=== PATIENT | male | born 1975 | race Two or more races ===

== ENCOUNTER 2022-10-28 15:02 | Outpatient (CLI) | payer OTHER ==
--- NOTE | 2022-10-28 15:43 | Sleep Patient Instructions ---
Sleep Center Visit Summary - Patient Visit Information Reason for Visit: Initial consult for evaluation of sleep disordered breathing and other sleep issues. - Patient Instructions Instructions Attached: Sleep Study Home Monitor, Sleep Study, Sleep Clinic Visit Additional Instructions: You will be completing a sleep study, either an in-lab polysomnography (PSG) or home sleep study (HST). You will follow-up in the sleep care office after the sleep study is completed to hear the results and talk about therapy, if needed. You will be called by our office staff to schedule this appointment, but you may contact us with any questions. - Clinic Information Contact: [facility] [address] [place] [address] [email or web address] T: [phone]
--- NOTE | 2022-10-28 15:55 | SLEEP CARE CONSULTATION ---
Information from patient questionnaire entered by Leah Berry. I have reviewed and concur with the information entered by Leah Berry. This document represents the service I personally performed and the decisions made by me, Loren Pearl ARNP. History of Present Illness Service Date and Time: 10/28/2022 1502 Reason for Visit: New patient Chief Complaint: reports: Insomnia, Unrefreshed sleep, Snoring, Excessive daytime sleepiness, Fatigue Date of Onset: 4YRS Usual bedtime: 12-1AM Time it takes to fall asleep: 0 MIN Snores at night: Yes Observed to quit breathing while asleep: No Sleeps alone due to snoring: Yes Number of times waking at night: 0 Reasons for waking at night: denies: Choking, Snoring, Gasping for air Toss, Turn, or Twitch while sleeping: No Recalls having dreams: No Usually gets out of bed at: 630AM; weekends tries to sleep longer but normally does not happen Feels refreshed in the morning: No Morning headache: No Sleepy or fatigued during the day: Yes (unintentional naps daily if "boring") Ever fallen asleep while driving: No (drowsy driving on long trips) Takes day naps: Yes (tries not to take them ) Dreams during day naps: No Prior sleep studies: No Additional HPI information: I had the pleasure of seeing HEVER GRANADOS today regarding the possibility of him having a sleep disorder. His current complaints are excessive daytime sleepiness, fatigue, insomnia, snoring and unrefreshed sleep. He comes in because is complaining of loud snoring. She will try to go to sleep before him to be able to fall asleep or sleep separately. He is generally tired through the day. If he does not stay busy he can fall asleep unintentionally. He will fall asleep while watching TV. He tries not to do this because he wants to go to bed on time. He states once he gets to sleep he does not usually wake up. He averages about 6 hours of sleep on a good night. He denies waking up with headaches. - Parasomnia Symptoms Ever been unable to move upon waking from sleep: No Walks in sleep: No Talks in sleep: No Ever acted out dreams in sleep: No Ever felt weak in the knees when startled or emotional: No Bothered by creepy, crawly, restless sensations in legs: Yes (sometimes; usually when trying to go to sleep) Problems with memory or concentration: Yes (both) Subjective Initial [place] Sleepiness Scale score: 15 (10/28/22) Past Medical History Past Medical History: reports: Other (no significant medical history) Social History The patient's occupation is a AM. Patient is and lives in [place]. Have you smoked in the past 12 months: Yes Cigarettes per day (20/pack): 10 Years of smokin Quit date: Smoking Pack Years: 15.0 Alcohol use: Yes Alcohol amount and frequency: 2-3 DRNKS 3-4DAYS A WEEK Caffeine use: Yes Caffeine amount and frequency: 12-16OZ 3-4 A DAY Family History Family history of sleep disordered breathing: No (don't know) Allergies and Home Medications Known drug allergies: No Drug allergies reviewed: Yes Home medication list reviewed: Yes (no daily medications) Review of Systems Weight gain over past 5 years: 0 Weight loss over past 5 years: 0 Cardiovascular: denies: high blood pressure Gastrointestinal: denies: heartburn Neurological: denies: headaches Psychiatric: denies: anxiety, depression Ear/Nose/Throat: reports: nasal congestion, wisdom teeth removed. denies: tonsillectomy Endocrine: reports: sluggishness, unexplained weakness Musculoskeletal: reports: joint pain, back pain, mobility problems Immunologic: reports: sneezing, allergies to food or environment (seasonal allergies) Physical Exam Vital signs obtained and entered by: LEAH Jasso MA Blood Pressure: 136/82 (LEFT ARM) Cuff size: regular Heart Rate: 68 O2 Saturation: 98 Height: 5 ft 9 in Weight: 175 lb 9.6 oz Body Mass Index: 25.9 BMI Classification: Overweight Neck circumference: 16.25 Mouth and throat: narrow oropharynx Soft palate: long Hard palate: normal Uvula: normal Uvula visualization: 0% Mallampati Class IV Tongue: enlarged in size with teeth frankel on lateral edges Tonsils: small Neck: normal w/o lymphadenopathy or thyromegaly Heart: regular rate and rhythm Lungs: clear bilaterally Impression and Plan 1. Suspected Obstructive Sleep Apnea-Hypopnea Syndrome, as suggested by a history of loud and irregular snoring, observed cessation of breath while asle ep, unrefreshed sleep, cognitive impairment, and excessive daytime sleepiness. Narrow oropharynx and obesity are common predisposing factors for obstructive sleep apnea-hypopnea syndrome. I recommend proceeding to polysomnography to confirm the diagnosis and to assess severity. If the patient has significant sleep disordered breathing, a manual CPAP titration study will also be performed to find the optimal treatment pressure. I informed the patient of what the sleep studies involve and after some discussion, obtained agreement to proceed. The pathophysiology of obstructive sleep apnea-hypopnea syndrome was discussed with the patient and health risks of cardiovascular and cerebrovascular disease if not treated. Risks of drowsy driving discussed in detail and patient advised to avoid long distance driving and to rod puller at the first sign of drowsiness. Patient agreed to plan. * Schedule polysomnography. * Avoid long distance driving or driving when feeling sleepy. * Avoid alcohol, sedative and muscle relaxant around bedtime. * Attempt to lose weight. * Review instructions provided by trained office staff on how to prepare for the sleep study. * Return for follow-up after sleep study completed. Counseling Topics: Weight loss health impact Visit Type: In Office Time Spent with Patient (minutes): 30 Provider Statement: I spent 100% of the Face to Face Visit with the patient with greater than 50% spent counseling the patient and coordination of care.
[2022-10-28 16:00] VITALS: BP 136/82; O2SAT 98
== END 2022-10-28 15:03 | disposition home or self-care (01) ==
LOC: SC 15:02
PROVIDERS: ATTEND Nurse Practitioner Family
DX: R06.83 Snoring (principal); R06.81 Apnea, not elsewhere classified; G47.8 Other sleep disorders; R41.89 Other symptoms and signs involving cognitive functions and awareness; G47.10 Hypersomnia, unspecified; F17.210 Nicotine dependence, cigarettes, uncomplicated; E66.3 Overweight; Z68.25 Body mass index [BMI] 25.0-25.9, adult
CPT/HCPCS: 99203; 99212

== ENCOUNTER 2022-12-01 19:34 | Outpatient (CLI) | payer OTHER | END 2022-12-01 19:35 | disposition home or self-care (01) | LOC: SC 19:34 | PROVIDERS: ATTEND Nurse Practitioner Family | DX: R06.83 Snoring (principal); G47.8 Other sleep disorders; R06.81 Apnea, not elsewhere classified; E66.3 Overweight; G47.10 Hypersomnia, unspecified; R53.83 Other fatigue; Z68.25 Body mass index [BMI] 25.0-25.9, adult | CPT/HCPCS: 95810 ==

== ENCOUNTER 2022-12-25 11:02 | Outpatient (CLI) | payer OTHER ==
--- NOTE | 2022-12-25 11:53 | Sleep Patient Instructions ---
Sleep Center Visit Summary - Patient Visit Information Reason for Visit: Sleep study followup - Patient Instructions Instructions Attached: Snoring Tips Prevent Additional Instructions: Your sleep study today was negative for significant sleep disordered breathing. You were found to have episodes of snoring. There are different ways to control snoring including weight loss, oral devices made by a dentist or surgical options through ENT specialist. You should not use oral devices that do not fit properly because they can affect your bite. You should also check insurance coverage of oral devices for snoring because they may not be cover well. You may obtain a referral to an ENT specialist through your primary provider. Follow-up as needed. - Clinic Information Contact: [facility] [address] [place] [address] [email or web address] T: [phone]
--- NOTE | 2022-12-25 11:55 | SLEEP CARE CONSULTATION ---
Information from patient questionnaire entered by Leha Berry. I have reviewed and concur with the information entered by Leah Berry. This document represents the service I personally performed and the decisions made by , Loren Pearl ARNP. History of Present Illness Service Date and Time: 12/25/2022 1102 Initial [place] Sleepiness Scale score: 15 (10/28/22) Current [place] Sleepiness Scale score: 13 (12/25/22) Additional HPI information: HEVER GRANADOS returns for follow up and results of the recently performed polysomnography. The patient was informed of the following findings: No significant sleep disordered breathing with an average AHI of 0.7 and eliezer oxygen saturation of 87%. I explained the pathophysiology behind obstructive sleep apnea. Patient does not have sleep apnea and was advised how weight gain could increase the risk of developing sleep apnea in the future. Patient has moderate snoring. Snoring can be reduced by weight loss. Weight loss is best achieved with diet consult. Patient instructed to contact PCP for referral. Snoring can also be treated with an oral appliance from a dentist. Advised to check insurance coverage. In addition, an ENT evaluation can be do to see if other treatment is indicated. Patient counseled not drink alcohol less than 4 hours before bedtime as it can increase snoring and apnea. Patient was cautioned about risks of drowsy driving until sleepiness symptoms resolve. Patient denies drowsy driving. Sleep Study - Results Type of Sleep Study: Polysomnography (COMPLETED 12/01/22) Prior sleep studies: No Polysomnography/Home Sleep Study results: IMPRESSION: The quality of the study is good. The patient had normal sleep efficiency. The sleep architecture was relatively normal as well considering the first night effect. Respiratory monitoring showed no significant sleep disordered breathing (AHI = 0.7) or hypoxia (eliezer oxygen saturation of 87% only 0.6% to the total sleep time was spent with oxygen saturation below 90%). The patient slept adequately in supine position (supine AHI = 0.0; nonsupine = 2.50). Snore was moderate in intensity. There was no significant periodic leg movement of sleep. Cardiac rhythm was normal sinus rhythm without significant arrhythmia. No abnormal behavior (parasomnia) observed during the night. Allergies and Home Medications Known drug allergies: No Drug allergies reviewed: Yes Home medication list reviewed: Yes (no changes) Allergy and home medication list: Allergies No Known Drug Allergies Allergy (Verified 12/24/22 16:00) Review of Systems Review of systems same as previous: Yes (NO CHANGE) Physical Exam Vital signs obtained and entered by: LEAH Jasso MA Blood Pressure: 126/78 (LEFT ARM) Cuff size: regular Heart Rate: 76 O2 Saturation: 96 Height: 5 ft 9 in Weight: 169 lb 9.6 oz Body Mass Index: 25.0 BMI Classification: Overweight Impression and Plan 1. Snoring but no significant sleep disordered breathing. Patient advised that often weight loss will reduce snoring as well as apnea risk. An oral appliance can also be used for snoring. This would require a dental consultation. Patient cautioned not to use other online appliances as can cause bite issues. A list of accredited dentists in [facility] and one local dentist who makes oral appliances is available in our office. Patient is advised to check if insurance will cover. An ENT consult can also be helpful to determine if any other treatment is an option. * Maintain a healthy weight * Avoid alcohol consumption near bedtime * The patient is cautioned about driving until sleepiness is completely resolved. * Return as needed for follow up. Counseling Topics: Weight control Follow up with Sleep Care in: as needed Visit Type: In Office Time Spent with Patient (minutes): 11 Provider Statement: I spent 100% of the Face to Face Visit with the patient with greater than 50% spent counseling the patient and coordination of care.
[2022-12-25 12:02] VITALS: BP 126/78; O2SAT 96
== END 2022-12-25 11:03 | disposition home or self-care (01) ==
LOC: SC 11:02
PROVIDERS: ATTEND Nurse Practitioner Family
DX: R06.83 Snoring (principal); E66.3 Overweight; Z68.25 Body mass index [BMI] 25.0-25.9, adult
CPT/HCPCS: 99212

== ENCOUNTER 2023-08-17 12:45 | Outpatient (CLI) | payer OTHER ==
--- NOTE | 2023-08-17 16:39 | XRAY Report ---
PROCEDURE: Hip w/Pelvis 2-3V RT INDICATIONS: HIP JOINT PAIN, RIGHT TECHNIQUE: 2 views of the hip were acquired. COMPARISON: None. FINDINGS: Bones: No fractures or dislocations. No suspicious bony lesions. Moderate bilateral degenerative hip joint space narrowing. Minimal periarticular osteophytes are present. No erosions. Soft tissues: No suspicious soft tissue calcifications or masses. IMPRESSION: Moderate bilateral hip arthritic change. Reviewed by: Genevieve Romano MD on 08/17/2023 4:38 PM PDT Approved by: Genevieve Romano MD on 08/17/2023 4:38 PM PDT Station ID: [id number]
== END 2023-08-17 13:00 | disposition home or self-care (01) ==
LOC: DI.N 12:45
PROVIDERS: ATTEND Physician Assistant Medical
DX: M16.0 Bilateral primary osteoarthritis of hip (principal)